=== PATIENT | male | born 1985 | race Caucasian/White ===

== ENCOUNTER 2020-03-28 16:16 | Emergency (ER) | payer MEDICAID, SELFPAY ==
[~2020-03-28] VITALS: Ht 193 cm; Wt 104.0 kg
[2020-03-28] MEDS ORDERED: ALBU6.7H9 INH (16:29)
[2020-03-28] MEDS ORDERED: BENZ-38 PO (16:29)
== END 2020-03-28 16:46 | disposition home or self-care (01) ==
LOC: ER 16:16
DX: R05 Cough (principal); R50.9 Fever, unspecified; R06.02 Shortness of breath; Z79.899 Other long term (current) drug therapy; Z20.828 Contact with and (suspected) exposure to other viral communicable diseases
CPT/HCPCS: 36415; 99281